=== PATIENT | female | born 1995 ===

== ENCOUNTER → 2020-09-28 09:01 | Outpatient (CLI) | payer OTHER, SELFPAY ==
[2020-09-28] MEDS: COVID-19 VACC(MODERNA-1)/PF 100 MCG/0.5 ML VIAL IM (09:08)
== END ==
PROVIDERS: Visit Provider Internal Medicine
DX: Z23 Encounter for immunization (principal)
CPT/HCPCS: 0011A; 91301

== ENCOUNTER → 2020-10-25 09:10 | Outpatient (CLI) | payer OTHER, SELFPAY ==
[2020-10-25] MEDS: COVID-19 VACC #2, MRNA(MOD) 100 MCG/0.5 ML VIAL IM (09:13)
== END ==
PROVIDERS: Visit Provider Internal Medicine
DX: Z23 Encounter for immunization (principal)
CPT/HCPCS: 0012A; 91301

== ENCOUNTER 2020-12-22 23:39 | Emergency (ER) | payer OTHER, SELFPAY ==
[2020-12-22 23:45] VITALS: BP 121/57; PULSE 88; RESP 17; TEMP 36.9; O2SAT 97; BMI 21.1
--- NOTE | 2020-12-22 23:54 | DI.RAD.S_ITS ---
PROCEDURE: XR HAND LT MIN 3V INDICATIONS: slipped on hardwood landing on hand. deformity in 4th finger TECHNIQUE: 3 views of the hand(s) acquired. COMPARISON: None. FINDINGS: Bones: Oblique fracture of the 4th metacarpal shaft with mild foreshortening. No evidence of articular extension. Carpal bones are normally aligned. No suspicious bony lesions. Soft tissues: No suspicious soft tissue calcifications. IMPRESSION: Foreshortened 4th metacarpal shaft fracture. Dictated by: Brad Ferreira M.D. on 12/22/2020 at 23:29 Approved by: Brad Ferreira M.D. on 12/22/2020 at 23:31
--- NOTE | 2020-12-23 01:13 | ED.UPPEXIN ---
HPI - Extremity Injury (Upper) General Chief Complaint: Extremity Injury, Upper Stated Complaint: thinks finger is broken Time Seen by Provider: 12/23/20 01:12 Source: patient Mode of arrival: Ambulatory Limitations: no limitations History of Present Illness HPI narrative: This is a 25-year-old female who thinks that her finger is broken on the left. Patient states she was running in the kitchen. The floor is very slippery. She was holding a bowl of ice cream and attempting to dodge a table while running and slipped and fell on her hand with the bowel in her hand. She states that the finger does appear to be misaligned. She has pain over the dorsum of her hand. She denies numbness or tingling currently. While she has been sitting waiting to be evaluated she noticed that on her opposite hand the 5th finger on her right hand has become increasingly painful and discolored. Patient denies any other injuries. Denies any other medical issues. Patient states she has seen orthopedic surgeons or Podiatry for her feet at [facility]. She does have primary care. Related Data Previous Rx's Medication Instructions Recorded hydrocodone-acetaminophen 1 tab PO Q6H PRN #10 tab 12/23/20 ondansetron HCl [Zofran] 4 mg PO Q6H PRN #10 tab 12/23/20 Allergies Allergy/AdvReac Type Severity Reaction Status Date / Time No Known Drug Allergies Allergy Verified 12/23/20 00:32 Review of Systems Review of Systems ROS Unobtainable: All systems reviewed & are unremarkable except as noted in HPI and below Patient History Social History Smoking Status: Never smoker Exam Narrative Exam Narrative: GENERAL: Alert and oriented x three, thin, well-appearing female in mild distress. HEENT: Head normocephalic, atraumatic, EOMI, pupils reactive, face symmetric, moist mucous membranes NECK: Supple, full range of motion CARDIOVASCULAR: Regular rate and rhythm without murmurs, rubs or gallops. RESPIRATORY: Breath sounds equal bilaterally, no wheezes rales or rhonchi. ABDOMEN: Soft, nontender. Normoactive bowel sounds all 4 quadrants. No guarding or rebound, rigidity, no mass : No CVA tenderness EXTREMITIES: Normal range of motion of all thing fingers on the right hand, no clubbing, patient has mild edema of the distal 5th finger, she has tenderness at the very distal portion. Nail is intact there is no lacerations. There is some discoloration consistent with ecchymosis. Patient appears to be neurovascular intact in all 5 fingers in her right hand. 2+ radial pulse. No other bony tenderness appreciated on the right. On the left hand. Patient has pain over the 4th metacarpal, she has angluation of the finger towards the ulnar side. NVI in all five fingers. No other bony tenderness is appreciated. No lacerations. Patient does have 2+ radial pulse. Neurovascularly intact NEUROLOGICAL: Cranial nerves II through XII grossly intact. Moving all extremities SKIN: Warm, dry, no petechiae, no rashes or lesions. Initial Vital Signs Initial Vital Signs: Vital Signs Temperature 98.5 F 12/22/20 23:45 Pulse Rate 88 12/22/20 23:45 Respiratory Rate 17 12/22/20 23:45 Blood Pressure 121/57 L 12/22/20 23:45 Pulse Oximetry 97 12/22/20 23:45 Procedures Orthopedic Fracture Reduction Fracture #1: Time Out Performed: Yes Side: left Fracture Reduction Location: metacarpal Analgesia: hematoma block Post-reduction neuro exam: intact Post-reduction vascular exam: intact Splint Applied: Yes Patient Tolerated Procedure: Well Additional Comments: Patient had gentle traction with improved alignment. Imaging was not obtained as patient had only mild manipulation. Orthopedic Splinting/Casting Injury #1: Side: left Upper Extremity Injury Location: hand Upper Extremity Immobilizer: ulnar gutter Post splinting neuro exam: intact Post splinting vascular exam: intact Placed by: Nursing Course Orders Ordered: ED Orders 12/22/20 23:54 XR hand LT min 3V Stat 12/23/20 01:21 XR finger RT min 2V Stat Discontinued Medications Hydrocodone Bitart/Acetaminophen (Hydrocodone/Acet 5/325 Tablet) 1 tab PO NOW ONE Stop: 12/23/20 01:22 Last Admin: 12/23/20 01:27 Dose: 1 tab Documented by: KGQING Hydrocodone Bitart/Acetaminophen (Hydrocodone/Acet 5/325 Prepack) 1 bottle MISC SEEINSTR ONE Stop: 12/23/20 03:19 Last Admin: 12/23/20 03:28 Dose: 1 bottle Documented by: MARK Lidocaine/Sodium Bicarbonate ([place] 1%/Sod Bicarb 8.4% (10ml) 10 Ml Syringe) 10 ml INJ NOW ONE Stop: 12/23/20 01:39 Last Admin: 12/23/20 03:29 Dose: 10 ml Documented by: MARK Ondansetron HCl (Ondansetron 4 Mg Odt) 4 mg SL NOW ONE Stop: 12/23/20 01:22 Last Admin: 12/23/20 01:27 Dose: 4 mg Documented by: NOEMI Ondansetron HCl (Ondansetron 4 Mg Odt Prepack) 1 bottle MISC SEEINSTR ONE Stop: 12/23/20 03:19 Last Admin: 12/23/20 03:28 Dose: 1 bottle Documented by: MARK Consultations Consultation #1: Dr. Markham, recommends follow up with splint. Can place hematoma block and attempt reduction to improve alignment and splint. Patient to follow up in the office. Time: 01:27 Vital Signs Vital signs: Vital Signs - 8 hr 12/22/20 23:45 12/23/20 03:42 Temperature 98.5 F Pulse Rate 88 78 Respiratory Rate 17 17 Blood Pressure 121/57 L 119/68 Pulse Oximetry 97 98 MDM - Extremity Injury (Upper) Imaging Data Extremity x-ray #1: Radiologist's Impression: Fourth metacarpal shaft fracture. Complete oblique fracture of the mid to distal shaft of the 4th metacarpal with 2.5 mm radial volar displacement and mild dorsal and minimal palmar angulation. No dislocation. Joint space adequately maintained. [facility] Narrative Medical decision making narrative: 25F year old female with ground level fall and metacarpal fracture. Patient had pain in pinky finger on opposite hand but negative for fracture. Hematoma block placed and improved visual alignment and ulnar gutter splint placed. Patient plan for follow up. Discharge Plan Departure Patient Disposition: Home Clinical Impression: Closed fracture of fourth metacarpal bone Qualifiers: Encounter type: initial encounter Metacarpal location: shaft Fracture alignment: displaced Laterality: left Qualified Code(s): S62.325A - Displaced fracture of shaft of fourth metacarpal bone, left hand, initial encounter for closed fracture Instructions: Hand Fracture Activity Restrictions/Additional Instructions: Follow up with orthopedic surgery, call Friday for an appointment. If you have an orthopedic surgeon that you prefer, contact the [facility] morning. Take the disc of images with that you were given today. You may take Zofran 1 tablet every 6 hours as needed for nausea. I recommend taking this 20 minutes prior to narcotic pain medication. Take [place] 1 tablet every 6 hours as needed for pain this medication can make you sleepy do not drive, perform hazardous activities or make any major decisions while taking it. This medication will also make you constipated, make sure your drinking plenty of fluids and take a stool softener 1-2 times daily until stools are soft and regular. Splint Care: Keep splint clean and dry. Elevated affected body part to decrease swelling. OK to use ice pack on the affected body part. Use for 15-20 minutes each time, for 5-6x per day. If you develop worsening pain, numbness, tingling, discoloration of the affected body part, loosen the splint by loosening the LEXI wrap, and either see your doctor for an urgent re-assessment, or return to the Emergency Department. Return to the Emergency Department for any new or worsening symptoms. Prescriptions: New hydrocodone-acetaminophen 5-325 mg tablet 1 tab PO Q6H PRN (Reason: pain) Qty: 10 RF: 0 ondansetron HCl [Zofran] 4 mg tablet 4 mg PO Q6H PRN (Reason: nausea and vomiting) Qty: 10 RF: 0 Referrals: Magalie Markham MD [Physician] -
--- NOTE | 2020-12-23 01:21 | DI.RAD.S_ITS ---
PROCEDURE: XR FINGER RT MIN 2V INDICATIONS: 5th finger, pain, discoloration TECHNIQUE: AP hand, 2 views of the pinky finger(s) acquired. COMPARISON: None. FINDINGS: Bones: No fractures or dislocations. No suspicious bony lesions. Soft tissues: No suspicious soft tissue calcifications. IMPRESSION: No acute bony abnormality. Dictated by: Brad Ferreira M.D. on 12/23/2020 at 8:34 Approved by: Brad Ferreira M.D. on 12/23/2020 at 8:35
[2020-12-23] MEDS: HYDROCODONE/ACET 5/325 TABLET 1 TAB PO (01:27)
[2020-12-23] MEDS: ONDANSETRON 4 MG ODT SL (01:27)
[2020-12-23] MEDS: ONDANSETRON 4 MG ODT PREPACK 1 BOTTLE MISC (03:28)
[2020-12-23] MEDS: HYDROCODONE/ACET 5/325 PREPACK 1 BOTTLE MISC (03:28)
[2020-12-23] MEDS: LIDO 1%/SOD BICARB 8.4% (10ML) 10 ML SYRINGE INJ (03:29)
[2020-12-23 03:42] VITALS: BP 119/68; PULSE 78; RESP 17; O2SAT 98
== END 2020-12-23 03:43 | disposition home or self-care (01) ==
PROVIDERS: Emergency Provider Emergency Medicine
DX: S62.325A Displaced fracture of shaft of fourth metacarpal bone, left hand, initial encounter for closed fracture (principal); W01.198A Fall on same level from slipping, tripping and stumbling with subsequent striking against other object, initial encounter
CPT/HCPCS: 26605; 73130; 73140; 99283; 99284

== ENCOUNTER → 2021-06-15 09:34 | Outpatient (CLI) | payer OTHER, SELFPAY ==
[2021-06-15 11:59] LABS: COVID19 -Nasal RAPID Negative (Negative)
== END ==
PROVIDERS: Visit Provider Nurse Practitioner
DX: Z20.822 Contact with and (suspected) exposure to COVID-19 (principal); R09.89 Other specified symptoms and signs involving the circulatory and respiratory systems; R53.83 Other fatigue
CPT/HCPCS: 87635

== ENCOUNTER → 2021-07-19 18:34 | Outpatient (CLI) | payer OTHER, SELFPAY | PROVIDERS: Referring Provider Internal Medicine; Visit Provider Internal Medicine | DX: Z23 Encounter for immunization (principal) | CPT/HCPCS: 90471; 90686 ==

== ENCOUNTER → 2021-08-15 09:22 | Outpatient (CLI) | payer OTHER, SELFPAY ==
[2021-08-15 11:22] LABS: COVID19 -Nasal RAPID POSITIVE (Negative)
== END ==
PROVIDERS: Visit Provider Nurse Practitioner Family
DX: U07.1 COVID-19 (principal); Z20.822 Contact with and (suspected) exposure to COVID-19; R51.9 Headache, unspecified; R09.81 Nasal congestion
CPT/HCPCS: 87635